=== PATIENT | female | born 1985 | race African-American/Black ===

== ENCOUNTER 2024-01-30 08:05 | Observation (INO) | payer OTHER ==
[~2024-01-30] VITALS: Ht 157.5 cm; Wt 62.6 kg
[2024-01-30] MEDS ORDERED: PREN-96 PO (10:05)
== END 2024-01-30 10:15 | disposition home or self-care (01) ==
LOC: UNDOADMOB 08:05 → LDRP 08:05
PROVIDERS: ADMIT Obstetrics & Gynecology; ATTEND Obstetrics & Gynecology
DX: O24.419 Gestational diabetes mellitus in pregnancy, unspecified control (principal); O99.323 Drug use complicating pregnancy, third trimester; F12.90 Cannabis use, unspecified, uncomplicated; Z3A.33 33 weeks gestation of pregnancy
CPT/HCPCS: 59025; 76818; 81002; 82948; G0378

== ENCOUNTER 2024-02-06 08:08 | Observation (INO) | payer OTHER ==
[~2024-02-06] VITALS: Ht 157.5 cm; Wt 61.2 kg
[~2024-02-06 08:08] MED LIST: PREN-96 PO
== END 2024-02-06 09:30 | disposition home or self-care (01) ==
LOC: LDRP 08:08 → UNDOADMOB 08:08 → LDRP 08:10
PROVIDERS: ADMIT Obstetrics & Gynecology; ATTEND Obstetrics & Gynecology
DX: O24.419 Gestational diabetes mellitus in pregnancy, unspecified control (principal); O99.323 Drug use complicating pregnancy, third trimester; F12.90 Cannabis use, unspecified, uncomplicated; Z3A.34 34 weeks gestation of pregnancy
CPT/HCPCS: 59025; 76818; 81002; 82948; 82962; G0378

== ENCOUNTER 2024-02-13 19:07 | Observation (INO) | payer OTHER ==
[~2024-02-13] VITALS: Ht 162.6 cm; Wt 62.6 kg
[2024-02-13] MEDS: TERBUTALINE SULFATE 1 MG/ML 1ML VIAL SC SCH (20:44)
[2024-02-13] MEDS: LACTATED RINGER'S 1,000 ML IV ONE (20:53)
== END 2024-02-13 22:07 | disposition home or self-care (01) ==
LOC: LDRP 19:07
PROVIDERS: ADMIT Obstetrics & Gynecology; ATTEND Obstetrics & Gynecology
DX: O24.419 Gestational diabetes mellitus in pregnancy, unspecified control (principal); O32.1XX0 Maternal care for breech presentation, not applicable or unspecified; O99.323 Drug use complicating pregnancy, third trimester; F12.90 Cannabis use, unspecified, uncomplicated; Z3A.35 35 weeks gestation of pregnancy
CPT/HCPCS: 59025; 76818; 81002; 82948; 82962; 94760; 96360; 96372; G0378; J3105; 96365

== ENCOUNTER → 2024-02-17 | Outpatient (CLI) | payer OTHER ==
[~2024-02-17] MED LIST changes: +NIF10C PO
[2024-02-17 13:09] LABS: Basophils # (auto) 0 10 ^3/uL (0-0.2); Basophils % (auto) 0.2 % (0.0-2.0); Eosinophils # (auto) 0.1 10 ^3/uL (0-0.8); Eosinophils % (auto) 1.2 % (0.0-7.0); Hematocrit 33.8 % (36.0-46.0); Hemoglobin 11.5 g/dL (12.2-16.2); Lymphocytes # (auto) 2.2 10 ^3/uL (0.4-5.4); Lymphocytes % (auto) 18.2 % (10.0-50.0); Mean Corpuscular Hgb Conc. 33.9 g/dL (32.0-36.0); Mean Corpuscular Volume 91.3 fL (80.0-100.0); Monocytes # (auto) 0.8 10 ^3/uL (0-1.3); Monocytes % (auto) 6.8 % (0.0-12.0); Neutrophils # (auto) 8.9 10 ^3/uL (1.6-8.6); Neutrophils % (auto) 73.6 % (37.0-80.0); Red Cell Distribution Width 13.8 % (11.8-14.3); White Blood Cell 12.1 10^3/uL (4.4-10.8)
[2024-02-18 08:17] LABS: RPR Non Reactive (Non Reactive)
[2024-02-18 21:06] LABS: Chlamydia Trachomatis, NAA Negative (Negative); Neisseria gonorrhoeae, NAA Negative (Negative)
== END | disposition home or self-care (01) ==
LOC: LAB 12:43
PROVIDERS: ATTEND Obstetrics & Gynecology
DX: Z34.00 Encounter for supervision of normal first pregnancy, unspecified trimester (principal); Z72.51 High risk heterosexual behavior; Z3A.00 Weeks of gestation of pregnancy not specified
CPT/HCPCS: 36415; 85025; 86592

== ENCOUNTER 2024-02-20 11:02 | Observation (INO) | payer OTHER ==
[~2024-02-20] VITALS: Ht 157.5 cm; Wt 62.6 kg
[~2024-02-20 11:02] MED LIST changes: -NIF10C PO
[2024-02-20] MEDS ORDERED: NIF10C PO (12:16)
== END 2024-02-20 13:18 | disposition home or self-care (01) ==
LOC: UNDOADMOB 11:02 → LDRP 11:02
PROVIDERS: ADMIT Obstetrics & Gynecology; ATTEND Obstetrics & Gynecology
DX: O60.03 Preterm labor without delivery, third trimester (principal); O24.419 Gestational diabetes mellitus in pregnancy, unspecified control; O99.323 Drug use complicating pregnancy, third trimester; F12.90 Cannabis use, unspecified, uncomplicated; Z3A.36 36 weeks gestation of pregnancy
CPT/HCPCS: 59025; 76818; 81002; 82948; 94760; G0378

== ENCOUNTER 2024-02-27 08:24 | Observation (INO) | payer OTHER ==
[~2024-02-27 08:24] MED LIST changes: +NIF10C PO
== END 2024-02-27 09:35 | disposition home or self-care (01) ==
LOC: UNDOADMOB 08:24 → LDRP 08:24 → UNDODISOB 09:35
PROVIDERS: ADMIT Obstetrics & Gynecology; ATTEND Obstetrics & Gynecology
DX: O24.419 Gestational diabetes mellitus in pregnancy, unspecified control (principal); O99.323 Drug use complicating pregnancy, third trimester; F12.90 Cannabis use, unspecified, uncomplicated; Z3A.37 37 weeks gestation of pregnancy
CPT/HCPCS: 59025; 76818; 81002; 82948; 82962; 94760; G0378

== ENCOUNTER 2024-03-02 08:22 | Observation (INO) | payer OTHER ==
[~2024-03-02] VITALS: Ht 157.5 cm; Wt 63.0 kg
[2024-03-02 20:22] LABS: Urine Bacteria None Seen /hpf (None Seen)
[2024-03-02 20:51] LABS: Amphetamine Screen, Urine Neg (NEGATIVE); Barbiturate Scree,Urine Neg (NEGATIVE); Benzodiazephine Screen, Urine Neg (NEGATIVE); Cocaine Screen, Urine Neg (NEGATIVE); Opiate Scree,Urine Neg (NEGATIVE)
[2024-03-02 20:52] LABS: Cannabinoid Screen, Urine Pos (NEGATIVE); Phencyclidine Screen, Urine Neg (NEGATIVE)
[2024-03-02 20:58] LABS: Urine Blood Negative /uL (Negative); Urine Clarity Clear (Clear); Urine Color Light-Yellow (Yellow); Urine Mucus FEW (None Seen); Urine Protein, UAD Negative (Negative); Urine Specific Gravity 1.014 (1.001-1.035); Urine Urobilinogen Normal (Negative); Urine WBC 2 /hpf (0 - 5); Urine pH 6.5 (5.0-9.0)
== END 2024-03-02 21:32 | disposition home or self-care (01) ==
LOC: LDRP 19:24
PROVIDERS: ADMIT Obstetrics & Gynecology; ATTEND Obstetrics & Gynecology
DX: O24.419 Gestational diabetes mellitus in pregnancy, unspecified control (principal); O40.3XX0 Polyhydramnios, third trimester, not applicable or unspecified; O99.323 Drug use complicating pregnancy, third trimester; F12.90 Cannabis use, unspecified, uncomplicated; Z3A.38 38 weeks gestation of pregnancy; Z91.018 Allergy to other foods; Z79.899 Other long term (current) drug therapy
CPT/HCPCS: 59025; 76818; 80307; 81001; 82948; 82962; G0378

== ENCOUNTER 2024-03-03 10:50 | Observation (INO) | payer OTHER | END 2024-03-05 13:43 | disposition home or self-care (01) | LOC: LDRP 03-05 11:13 → UNDOADMOB 03-05 11:13 → LDRP 03-05 11:29 | PROVIDERS: ADMIT Obstetrics & Gynecology; ATTEND Obstetrics & Gynecology | DX: O24.419 Gestational diabetes mellitus in pregnancy, unspecified control (principal); O40.3XX0 Polyhydramnios, third trimester, not applicable or unspecified; O99.323 Drug use complicating pregnancy, third trimester; F12.90 Cannabis use, unspecified, uncomplicated; Z3A.38 38 weeks gestation of pregnancy; Z91.018 Allergy to other foods | CPT/HCPCS: 59025; 76818; 81002; 82948; 82962; 94760; G0378 ==

== ENCOUNTER 2024-03-11 08:38 | Inpatient (IN) | payer OTHER ==
[~2024-03-11] VITALS: Ht 157.5 cm; Wt 61.7 kg
[2024-03-11] VITALS (7 sets, daily range): BP systolic 95–138; BP diastolic 50–85; PULSE 58–68; RESP 15–20; TEMP 97.2–98.4; O2SAT 96–100
[~2024-03-11 08:38] MED LIST changes: -NIF10C PO
[2024-03-11 09:48] LABS: Urine Bacteria None Seen /hpf (None Seen)
[2024-03-11 09:57] LABS: Basophils # (auto) 0.1 10 ^3/uL (0-0.2); Basophils % (auto) 0.7 % (0.0-2.0); Eosinophils # (auto) 0 10 ^3/uL (0-0.8); Eosinophils % (auto) 0.2 % (0.0-7.0); Hematocrit 39.9 % (36.0-46.0); Hemoglobin 13.4 g/dL (12.2-16.2); Lymphocytes # (auto) 2.8 10 ^3/uL (0.4-5.4); Lymphocytes % (auto) 22.7 % (10.0-50.0); Mean Corpuscular Hemoglobin 30.8 pg (28.0-32.0); Mean Corpuscular Hgb Conc. 33.7 g/dL (32.0-36.0); Mean Corpuscular Volume 91.4 fL (80.0-100.0); Monocytes # (auto) 0.6 10 ^3/uL (0-1.3); Monocytes % (auto) 4.8 % (0.0-12.0); Neutrophils # (auto) 8.7 10 ^3/uL (1.6-8.6); Neutrophils % (auto) 71.6 % (37.0-80.0); Red Blood Cells 4.37 10^6/uL (4.0-5.20); Red Cell Distribution Width 14.1 % (11.8-14.3); White Blood Cell 12.2 10^3/uL (4.4-10.8)
[2024-03-11 10:07] LABS: Urine Amorphous Crystal FEW /hpf (None Seen); Urine Blood Negative /uL (Negative); Urine Budding Yeast OCCASIONAL /hpf (None Seen); Urine Clarity Turbid (Clear); Urine Color Light-Yellow (Yellow); Urine Mucus FEW (None Seen); Urine Protein, UAD TRACE (Negative); Urine Specific Gravity 1.021 (1.001-1.035); Urine Urobilinogen Normal (Negative); Urine WBC 4 /hpf (0 - 5)
[2024-03-11 10:10] LABS: INR 0.95 (0.9-1.15); Partial Thromboplastin Time 25.6 SEC (24.5-34.5); Prothrombin Time 10.1 sec (9.3-11.8)
[2024-03-11 10:21] LABS: Alanine Aminotransferase 22 U/L (7-40); Albumin 4.1 g/dL (3.2-4.8); Alkaline Phosphatase 125 U/L (46-116); Anion Gap 5 (5-15); Aspartate Aminotransferase 19 U/L (13-40); BUN/Creatinine Ratio 14.3 (10.0-20.0); Blood Urea Nitrogen 9 mg/dL (9-23); Carbon Dioxide 21 mmol/L (20-30); Chloride 111 mmol/L (98-107); Glucose 91 mg/dL (74-106); Potassium 3.4 mmol/L (3.5-5.1); Sodium 137 mmol/L (136-145)
[2024-03-11 10:22] LABS: Bilirubin, Total 0.6 mg/dL (0.2-1.0); Total Protein 7.3 g/dL (5.7-8.2)
[2024-03-11 10:34] LABS: Amphetamine Screen, Urine Neg (NEGATIVE); Barbiturate Scree,Urine Neg (NEGATIVE); Benzodiazephine Screen, Urine Neg (NEGATIVE); Cannabinoid Screen, Urine Pos (NEGATIVE); Cocaine Screen, Urine Neg (NEGATIVE); Opiate Scree,Urine Neg (NEGATIVE); Phencyclidine Screen, Urine Neg (NEGATIVE)
[2024-03-11] MEDS ORDERED: LIDOCAINE 2%HCL (LOCAL ANESTH.) INJ 20ML MDV IJ PRN (10:45)
[2024-03-11] MEDS ORDERED: PHISODERM TOP SOLN 240ML BTL TOP PRN (10:45)
[2024-03-11] MEDS: LACT. RINGERS/OXYTOCIN 20UNITS 500 ML IV ONE ×2 (10:45→11:15)
[2024-03-11] MEDS ORDERED: LACT. RINGERS/OXYTOCIN 20UNITS 1,000 ML IV SCH (10:45)
[2024-03-11] MEDS ORDERED: BUTORPHANOL TARTRATE 2 MG/1 ML VIAL IV PRN (10:45)
[2024-03-11] MEDS ORDERED: DERMOPLAST 60ML BOTTLE TOP PRN (10:45)
[2024-03-11] MEDS ORDERED: WITCH HAZEL-GLYCERIN PAD TOP PRN (10:45)
[2024-03-11] MEDS: fentaNYL CITRATE 100 MCG/2 ML VL IV ONE (11:00)
[2024-03-11] MEDS: NALOXONE HCL 0.4 MG/ML VIAL IV ONE (11:00)
[2024-03-11] MEDS: ePHEDrine SULFATE 50 MG/ML AMP IV ONE (11:00)
[2024-03-11] MEDS: BUTORPHANOL TARTRATE 2 MG/1 ML VIAL IV PRN (11:24)
[2024-03-11] MEDS: LIDOCAINE HCL 2 %PF INJ 10ML AMP IJ ONE (15:10)
[2024-03-11] MEDS ORDERED: oxyTOCIN 10 UNIT/ML 10ML VIAL ONE (15:12)
[2024-03-11] MEDS ORDERED: MORPHINE SULF PF 5 MG/10 ML VIAL ONE (15:12)
[2024-03-11] MEDS: SUCCINYLCHOLINE CHLORIDE 20 MG/ML 10ML VIAL IV ONE (15:20)
[2024-03-11] MEDS ORDERED: fentaNYL CITRATE 100 MCG/2 ML VL ONE (15:28)
[2024-03-11] MEDS ORDERED: MIDAZOLAM HCL 2MG/2ML 2ml VIAL (1mg/ml) ONE (15:29)
[2024-03-11] MEDS ORDERED: MEPERIDINE HCL (25 MG/ML) 1ML VIAL ONE (15:29)
[2024-03-11] MEDS: CARBOPROST TROMETHAMINE 250 MCG/1ML VIAL IM ONE (15:30)
[2024-03-11] MEDS ORDERED: PROPOFOL 10 MG/ML 20 ML IV ONE ×2 (15:32→15:53)
[2024-03-11] MEDS ORDERED: ONDANSETRON HCL 4 MG/2 ML VIAL ONE (15:39)
[2024-03-11] MEDS: LACT. RINGERS/OXYTOCIN 20UNITS 1,000 ML IV ONE (16:00)
[2024-03-11] MEDS ORDERED: ONDANSETRON HCL 4 MG/2 ML VIAL IV PRN (16:00)
[2024-03-11] MEDS: GUM (CHEWING) 1 GUM CHEW CHEW ONE (16:00)
[2024-03-11] MEDS: DIPHENOXYLATE W/ATROPINE 2.5 MG TAB ONE (16:40)
[2024-03-11] MEDS ORDERED: HYDROmorphone HCL 2 MG/ML VL/or syr IV PRN (16:45)
[2024-03-11] MEDS: ONDANSETRON HCL 4 MG/2 ML VIAL IV ONE (16:45)
[2024-03-11] MEDS ORDERED: MEPERIDINE HCL (25 MG/ML) 1ML VIAL IV PRN (16:45)
[2024-03-11] MEDS: ROPIVACAINE HCL 200 ML ONE (16:53)
[2024-03-11] MEDS: LACTATED RINGER'S 1,000 ML IV SCH (16:55)
[2024-03-11] MEDS: ceFAZolin 1GM/50ML 50 ML IV SCH (18:42)
[2024-03-11] MEDS: LACTATED RINGER'S 1,000 ML IV ONE (18:42)
[2024-03-11] MEDS: HYDROmorphone HCL 2 MG/ML VL/or syr IV PRN (20:11)
[2024-03-11] MEDS ORDERED: KETOROLAC TROMETH 30 MG/ML 1ML VIAL IV PRN (21:00)
[2024-03-11] MEDS: ACETAMINOPHEN IV 1000 MG/100ML (10MG/ML) IV PRN (21:11)
[2024-03-11 23:04] LABS: Basophils # (auto) 0 10 ^3/uL (0-0.2); Basophils % (auto) 0.2 % (0.0-2.0); Eosinophils # (auto) 0 10 ^3/uL (0-0.8); Hematocrit 34.9 % (36.0-46.0); Hemoglobin 11.5 g/dL (12.2-16.2); Lymphocytes # (auto) 1.5 10 ^3/uL (0.4-5.4); Lymphocytes % (auto) 7.5 % (10.0-50.0); Mean Corpuscular Hemoglobin 30.4 pg (28.0-32.0); Mean Corpuscular Volume 92.2 fL (80.0-100.0); Monocytes # (auto) 1.4 10 ^3/uL (0-1.3); Monocytes % (auto) 6.9 % (0.0-12.0); Neutrophils # (auto) 17.6 10 ^3/uL (1.6-8.6); Neutrophils % (auto) 85.4 % (37.0-80.0); Red Blood Cells 3.79 10^6/uL (4.0-5.20); White Blood Cell 20.6 10^3/uL (4.4-10.8)
[2024-03-12] MEDS ORDERED: ASCO1TAB27 PO (01:06)
[2024-03-12] MEDS ORDERED: HYDR-4902 PO (01:06)
[2024-03-12] MEDS ORDERED: IBUP-1456 PO (01:06)
[2024-03-12] MEDS ORDERED: FER325T PO (01:06)
[2024-03-12] MEDS ORDERED: DOCU-94 PO (01:06)
[2024-03-12 03:00] VITALS: BP 112/72; PULSE 70; RESP 16; TEMP 98.1; O2SAT 99
[2024-03-12] MEDS ORDERED: HYDROcodone-ACET 5/325MG TAB PO PRN (06:45)
[2024-03-12 07:00] VITALS: BP 130/80; PULSE 74; RESP 16; RESP 18; TEMP 97.9; O2SAT 100
[2024-03-12 07:04] LABS: Basophils # (auto) 0 10 ^3/uL (0-0.2); Basophils % (auto) 0.1 % (0.0-2.0); Eosinophils # (auto) 0 10 ^3/uL (0-0.8); Hemoglobin 10.8 g/dL (12.2-16.2); Lymphocytes # (auto) 1.7 10 ^3/uL (0.4-5.4); Lymphocytes % (auto) 8.5 % (10.0-50.0); Mean Corpuscular Hemoglobin 31.6 pg (28.0-32.0); Mean Corpuscular Hgb Conc. 33.7 g/dL (32.0-36.0); Mean Corpuscular Volume 93.6 fL (80.0-100.0); Monocytes # (auto) 1.3 10 ^3/uL (0-1.3); Monocytes % (auto) 6.3 % (0.0-12.0); Neutrophils # (auto) 17.2 10 ^3/uL (1.6-8.6); Neutrophils % (auto) 85.1 % (37.0-80.0); Nucleated Red Blood Cells % 0.1 %; Red Blood Cells 3.42 10^6/uL (4.0-5.20); Red Cell Distribution Width 14.1 % (11.8-14.3); White Blood Cell 20.2 10^3/uL (4.4-10.8)
[2024-03-12 07:06] LABS: RPR Non Reactive (Non Reactive)
[2024-03-12] MEDS: DOCUSATE SOD 100 MG CAP PO SCH (07:46)
[2024-03-12] MEDS: DOCUSATE CALCIUM 240 MG CAP PO SCH (07:47)
[2024-03-12] MEDS: HYDROcodone-ACET 5/325MG TAB PO PRN (07:47)
[2024-03-12] MEDS: IBUPROFEN 800 MG TAB PO PRN (09:09)
[2024-03-12] MEDS: POTASSIUM CHL 20 Meq TABLET PO ONE (10:12)
[2024-03-12 10:49] VITALS: BP 137/78; PULSE 79; RESP 16; TEMP 97.7; O2SAT 100
[2024-03-12] MEDS: SIMETHICONE 80 MG CHEWABLE TABLET PO SCH (12:00)
[2024-03-12 15:00] VITALS: BP 117/58; PULSE 80; RESP 16; TEMP 98.5; O2SAT 100
[2024-03-12 23:00] VITALS: BP 136/74; PULSE 90; RESP 17; TEMP 98; O2SAT 100
[2024-03-13 02:45] VITALS: BP 130/70; PULSE 81; RESP 17; TEMP 98.1; O2SAT 100
[2024-03-13 07:30] VITALS: BP 128/71; PULSE 70; RESP 16; TEMP 98.5; O2SAT 100
[2024-03-13 11:20] VITALS: BP 125/69; PULSE 68; RESP 17; TEMP 98.8; O2SAT 100
[2024-03-13 15:30] VITALS: BP 129/91; PULSE 89; RESP 16; TEMP 98.6; O2SAT 100
[2024-03-13 18:06] LABS: Treponema pallidum Ab (FTA-Ab) Non Reactive (Non Reactive)
[2024-03-13 19:00] VITALS: BP 126/78; PULSE 76; RESP 18; TEMP 98.6; O2SAT 100
[2024-03-13 23:00] VITALS: BP 136/79; PULSE 78; RESP 17; TEMP 98.6; O2SAT 100
[2024-03-14 02:35] VITALS: BP 128/86; PULSE 81; RESP 17; TEMP 98.5; O2SAT 100
[2024-03-14 06:32] LABS: Basophils # (auto) 0 10 ^3/uL (0-0.2); Basophils % (auto) 0.2 % (0.0-2.0); Eosinophils # (auto) 0.1 10 ^3/uL (0-0.8); Eosinophils % (auto) 0.4 % (0.0-7.0); Hematocrit 30.2 % (36.0-46.0); Lymphocytes # (auto) 2.2 10 ^3/uL (0.4-5.4); Lymphocytes % (auto) 14.9 % (10.0-50.0); Mean Corpuscular Hgb Conc. 33.2 g/dL (32.0-36.0); Mean Corpuscular Volume 93.4 fL (80.0-100.0); Monocytes # (auto) 0.8 10 ^3/uL (0-1.3); Monocytes % (auto) 5.6 % (0.0-12.0); Neutrophils # (auto) 11.4 10 ^3/uL (1.6-8.6); Neutrophils % (auto) 78.9 % (37.0-80.0); Red Blood Cells 3.23 10^6/uL (4.0-5.20); White Blood Cell 14.5 10^3/uL (4.4-10.8)
[2024-03-14 07:00] VITALS: BP 126/97; PULSE 81; RESP 20; TEMP 98.1; O2SAT 100
[2024-03-14 11:15] VITALS: BP 126/99; PULSE 64; TEMP 97.8; O2SAT 97
== END 2024-03-14 14:17 | disposition home or self-care (01) | DRG 787 ==
LOC: LDRP 08:38 → OBSVTOIN 10:30 → LDRP 15:27
PROVIDERS: ADMIT Obstetrics & Gynecology; ATTEND Obstetrics & Gynecology
PROC: 10D00Z1 Extraction of Products of Conception, Low, Open Approach (ICD-10-PCS; principal; 2024-03-11 15:18)
DX: O77.0 Labor and delivery complicated by meconium in amniotic fluid (principal); R71.0 Precipitous drop in hematocrit; O24.429 Gestational diabetes mellitus in childbirth, unspecified control; O40.3XX0 Polyhydramnios, third trimester, not applicable or unspecified; Z37.0 Single live birth; Z3A.39 39 weeks gestation of pregnancy; O90.81 Anemia of the puerperium; O77.9 Labor and delivery complicated by fetal stress, unspecified
CPT/HCPCS: 36415; 62282; 76818; 80053; 80307; 81001; 82948; 82962; 85025; 85610; 85730; 86592; 86850; 86900; 86901; 87340; 94760; 96360; 96361; 96365; 96366; 96374; 96375; G0378; J0131; J0330; J2250; J2405; J2590; J2704